=== PATIENT | male | born 1950 | race Two or more races ===

== ENCOUNTER 2018-04-17 15:10 | Emergency (ER) | payer OTHER, MEDICAID ==
[~2018-04-17] VITALS: Ht 167.6 cm; Wt 72.6 kg
[2018-04-17] MEDS ORDERED: LIDOCAINE 2% (LOCAL ANESTH.) PF 5ml SDV ONE (18:49)
[2018-04-17 19:15] VITALS: BP 124/62
[2018-04-17] MEDS ORDERED: TETANUS-DIPTH-ACEL PERTUSSIS 0.5ML SYRG IM ONE (19:15)
== END 2018-04-17 19:27 | disposition home or self-care (01) ==
LOC: ER 15:24
DX: S61.412A Laceration without foreign body of left hand, initial encounter (principal); W22.8XXA Striking against or struck by other objects, initial encounter; Y93.89 Activity, other specified; Y99.8 Other external cause status; Y92.89 Other specified places as the place of occurrence of the external cause
CPT/HCPCS: 12001; 73120; 90471; 90715; 99283; J2001